=== PATIENT | male | born 1995 | race Caucasian/White ===

== ENCOUNTER 2021-08-20 04:30 | Emergency (ER) | payer OTHER ==
[~2021-08-20] VITALS: Ht 165.1 cm; Wt 80.9 kg
[2021-08-20] MEDS ORDERED: ONDANSETRON PF 4 MG/2 ML VIAL. IVP ONE (07:15)
[2021-08-20] MEDS ORDERED: IV NORMAL SALINE 1000ML BAG 1,000 ML IV ONE (07:15)
[2021-08-20] MEDS ORDERED: KETOROLAC 30 MG/ML VIAL. IVP ONE (07:15)
[2021-08-20 07:21] LABS: BASO # 0.1 x10^3/uL (0.0-0.2); BASO % 1 % (0-3); EOS # 0.2 x10^3/uL (0.0-0.7); EOS % 2 % (0-3); HEMATOCRIT 45.4 % (39.0-53.0); HEMOGLOBIN 15.5 g/dL (13.0-17.5); LYMPH # 3.1 x10^3/uL (1.0-4.8); LYMPH % 28 % (24-48); MEAN CORPUSCULAR HEMOGLOBIN 32 pg (25-35); MEAN CORPUSCULAR HGB CONC 34 g/dL (31-37); MEAN CORPUSCULAR VOLUME 93 fL (79-100); MONO # 0.5 x10^3/uL (0.0-1.1); MONO % 4 % (0-9); NEUT # 7.4 x10^3/uL (1.8-7.7); NEUT % 66 % (31-73); PLATELET COUNT 254 x10^3/uL (140-400); RED BLOOD COUNT 4.89 x10^6/uL (4.30-5.70); RED CELL DISTRIBUTION WIDTH 12.8 % (11.5-14.5); WHITE BLOOD COUNT 11.3 x10^3/uL (4.0-11.0)
--- NOTE | 2021-08-20 07:21 | PHYS DOC ---
Adult General Chief Complaint Chief Complaint: ABDOMINAL PAIN HPI HPI The patient is a 26-year-old male with a history of HIV on antiretroviral therapy with what he reports is an undetectable viral load. He presents for e valuation of low midline abdominal pain with onset at about 1 AM overnight, awakening the patient from sleep. Associated nonbloody vomiting x2. Patient reports discomfort was not reproducible to palpation. It was initially severe and nonradiating but is now mild and nonradiating, no more than 1 or 2 out of 10 in severity. Patient reports a prior episode of identical discomfort about a week ago which lasted for a few hours without any vomiting and then resolved. Prior to that, no episodes of similar pain in the past. Patient is alert and pleasantly and appropriately interactive and in no acute distress. Vital signs are appropriate here. Review of Systems Review of Systems A 12 point review of systems was completed and was negative except for noted in HPI above. Current Medications Current Medications Current Medications Medications (Trade) Dose Ordered Sig/Christian Start Time Stop Time Status Last Admin Dose Admin Info (CONTRAST GIVEN -- Rx MONITORING) 1 each PRN DAILY PRN 08/20/21 08:00 08/22/21 07:59 Iohexol (Omnipaque 300 Mg/ml) 75 ml 1X ONCE 08/20/21 08:00 08/20/21 08:01 DC 08/20/21 08:27 75 ML Ketorolac Tromethamine (Toradol 30mg Vial) 30 mg 1X ONCE 08/20/21 07:15 08/20/21 07:16 DC 08/20/21 07:33 30 MG Ondansetron HCl (Zofran) 4 mg 1X ONCE 08/20/21 07:15 08/20/21 07:16 DC 08/20/21 07:33 4 MG Sodium Chloride 1,000 ml @ 1,000 mls/hr 1X ONCE 08/20/21 07:15 08/20/21 08:14 DC 08/20/21 07:32 1,000 MLS/HR Allergies Allergies Allergies Coded Allergies Type Severity Reaction Last Updated Verified amoxicillin Allergy Intermediate 08/20/21 Yes azithromycin Allergy Intermediate 08/20/21 Yes cefdinir Allergy Intermediate 08/20/21 Yes clavulanic acid Allergy Intermediate 08/20/21 Yes Uncoded Allergies Type Severity Reaction Last Updated Verified AMOXICLLIN Allergy Unknown 08/20/21 Physical Exam Physical Exam 26-year-old male appearing nontoxic and in no acute distress. Head is normocephalic and atraumatic. Neck is supple and nontender. Oropharynx is moist. Lungs are clear to auscultation at all stations. There is a normal S1 and S2 without rubs or gallops and capillary refill is appropriate, less than 2 seconds globally. Abdomen is soft, nontender and nondistended. Skin is warm and dry without cyanosis, clubbing or edema. Psychiatrically, the patient demonstrates appropriate mood and affect and is alert. Current Patient Data Vital Signs Vital Signs Date Time Temp Pulse Resp B/P (MAP) Pulse Ox O2 Delivery O2 Flow Rate FiO2 08/20/21 07:02 98.4 68 16 148/100 (116) 100 Room Air 98.4 Lab Values Laboratory Tests Test 08/20/21 07:05 08/20/21 07:15 White Blood Count 11.3 x10^3/uL (4.0-11.0) H Red Blood Count 4.89 x10^6/uL (4.30-5.70) Hemoglobin 15.5 g/dL (13.0-17.5) Hematocrit 45.4 % (39.0-53.0) Mean Corpuscular Volume 93 fL (79-100) Mean Corpuscular Hemoglobin 32 pg (25-35) Mean Corpuscular Hemoglobin Concent 34 g/dL (31-37) Red Cell Distribution Width 12.8 % (11.5-14.5) Platelet Count 254 x10^3/uL (140-400) Neutrophils (%) (Auto) 66 % (31-73) Lymphocytes (%) (Auto) 28 % (24-48) Monocytes (%) (Auto) 4 % (0-9) Eosinophils (%) (Auto) 2 % (0-3) Basophils (%) (Auto) 1 % (0-3) Neutrophils # (Auto) 7.4 x10^3/uL (1.8-7.7) Lymphocytes # (Auto) 3.1 x10^3/uL (1.0-4.8) Monocytes # (Auto) 0.5 x10^3/uL (0.0-1.1) Eosinophils # (Auto) 0.2 x10^3/uL (0.0-0.7) Basophils # (Auto) 0.1 x10^3/uL (0.0-0.2) Sodium Level 140 mmol/L (136-145) Potassium Level 4.1 mmol/L (3.5-5.1) Chloride Level 103 mmol/L (98-107) Carbon Dioxide Level 28 mmol/L (21-32) Anion Gap 9 (6-14) Blood Urea Nitrogen 16 mg/dL (8-26) Creatinine 0.9 mg/dL (0.7-1.3) Estimated GFR (Cockcroft-Gault) 101.2 BUN/Creatinine Ratio 18 (6-20) Glucose Level 89 mg/dL (70-99) Calcium Level 8.6 mg/dL (8.5-10.1) Total Bilirubin 0.5 mg/dL (0.2-1.0) Aspartate Amino Transferase (AST) 18 U/L (15-37) Alanine Aminotransferase (ALT) 33 U/L (16-63) Alkaline Phosphatase 60 U/L (46-116) Total Protein 7.4 g/dL (6.4-8.2) Albumin 3.9 g/dL (3.4-5.0) Albumin/Globulin Ratio 1.1 (1.0-1.7) Lipase 59 U/L (73-393) L Urine Collection Type Unknown Urine Color Yellow Urine Clarity Clear Urine pH 6.0 (<5.0-8.0) Urine Specific [place] 1.010 (1.000-1.030) Urine Protein Negative mg/dL (NEG-TRACE) Urine Glucose (UA) Negative mg/dL (NEG) Urine Ketones (Stick) Negative mg/dL (NEG) Urine Blood Negative (NEG) Urine Nitrite Negative (NEG) Urine Bilirubin Negative (NEG) Urine Urobilinogen Dipstick 0.2 mg/dL (0.2 mg/dL) Urine Leukocyte Esterase Negative (NEG) Urine RBC 0 /HPF (0-2) Urine WBC Occ /HPF (0-4) Urine Squamous Epithelial Cells Occ /LPF Urine Bacteria 0 /HPF (0-FEW) Urine Mucus Slight /LPF Laboratory Tests 08/20/21 07:05 Laboratory Tests 08/20/21 07:05 EKG EKG [] Radiology/Procedures Radiology/Procedures [] Course & Med Decision Making Course & Med Decision Making 26-year-old gentleman, HIV positive but with undetectable viral load due to co mpliance with antiretroviral medications. Here with nonreproducible low abdominal discomfort and vomiting beginning overnight. Prior identical episode last week. Will place IV and give IV fluids and medication for nausea and discomfort as noted and will check labs and urine and will then reevaluate. Depending upon urinalysis results, will opt for either a contrasted or a stone protocol CT scan of the abdomen and pelvis for disposition. Patient understands and agrees with this plan of care. 0910: Patient is resting comfortably in no acute distress on serial reassessments. Endorses complete resolution of his presenting abdominal discomfort, nausea and vomiting. Labs and imaging wholly nonacute and without evidence of a clear etiology for the patient's presenting symptoms. Given reas suring work-up and resolution of symptoms and is otherwise entirely well- appearing patient, will discharge home with medication for symptomatic management and instructions to follow-up very closely in the next 1 to 2 days with primary care. Patient understands that if he feels worse instead of bett er, has recurrent symptoms or any other new symptoms of concern that he will need to return to the emergency department immediately for reevaluation. All questions were answered Dragon Disclaimer Dragon Disclaimer This electronic medical record was generated, in whole or in part, using a voice recognition dictation system. Departure Departure Impression: Primary Impression: Lower abdominal pain Additional Impression: Acute vomiting Disposition: 01 HOME / SELF CARE / HOMELESS Condition: IMPROVED Patient Instructions: Abdominal Pain (Nonspecific) Additional Instructions: Follow-up very closely with your primary care doctor in the office in the next 1 to 2 days for a reevaluation of your symptoms and to discussion of next best steps in care. Get plenty of rest and drink plenty of fluids. Take a 500 mg extra strength Tylenol pill every 6 hours as needed for discomfort. You may also try a 10 mg Bentyl pill every 6 hours as needed for pain. For nausea, take a Zofran tablet underneath your tongue (let it dissolve) every 8 hours as needed. Return to the emergency department right away for recurrent or worsening symptoms of any kind or with any other new symptoms of concern. Scripts Ondansetron Hcl (ZOFRAN) 4 Mg Tablet 1 TAB PO PRN Q6-8HRS for nausea, #12 TAB Prov: VITA MAXWELL MD 08/20/21 Dicyclomine Hcl (DICYCLOMINE HCL) 10 Mg Capsule 10 MG PO QID for abd pain/spasm, #16 CAP Prov: VITA MAXWELL MD 08/20/21 Acetaminophen (ACETAMINOPHEN) 500 Mg Tablet 1 TAB PO PRN Q6HRS PRN for pain or fever for 15 Days, #50 TAB 0 Refills Prov: VITA MAXWELL MD 08/20/21 Problem Qualifiers VITA MAXWELL MD Aug 20, 2021 07:21
[2021-08-20 07:25] LABS: BILIRUBIN,URINE NEGATIVE (NEG); CLARITY,URINE CLEAR; COLOR,URINE YELLOW; NITRITE,URINE NEGATIVE (NEG); PROTEIN,URINE NEGATIVE (NEG-TRACE); UROBILINOGEN,URINE 0.2 mg/dL (0.2 mg/dL)
[2021-08-20 07:27] LABS: CALCIUM 8.6 mg/dL (8.5-10.1); CREATININE 0.9 mg/dL (0.7-1.3); GFR 101.2; POTASSIUM 4.1 mmol/L (3.5-5.1)
[2021-08-20 07:33] LABS: ALBUMIN 3.9 g/dL (3.4-5.0); ALBUMIN/GLOBULIN RATIO 1.1 (1.0-1.7); TOTAL BILIRUBIN 0.5 mg/dL (0.2-1.0); TOTAL PROTEIN 7.4 g/dL (6.4-8.2)
[2021-08-20 07:39] LABS: BACTERIA,URINE 0 /HPF (0-FEW); RBC,URINE 0 /HPF (0-2); WBC,URINE OCC /HPF (0-4)
[2021-08-20] MEDS ORDERED: IOHEXOL 300 MG/ML 100ML VIAL. IV ONE (08:00)
[2021-08-20] MEDS ORDERED: CONTRAST GIVEN. MC PRN (08:00)
--- NOTE | 2021-08-20 08:39 | RAD ---
Exam: CT abdomen/pelvis with intravenous contrast Indication: Bilateral lower quadrant abdominal pain, vomiting Comparison: None Technique: Helical CT imaging performed of the abdomen and pelvis after the intravenous administratio n of 75 mL Omnipaque 300 contrast. Sagittal and coronal reformats were obtained. One or more of the following individualized dose reduction techniques were utilized for this examinat ion: 1. Automated exposure control 2. Adjustment of the mA and/or kV according to patient size 3. Use of iterative reconstruction technique. Findings: Lower chest: The lung bases are clear. The heart is normal in size. Liver: Normal. Gallbladder/Biliary Tree: Normal. Pancreas: Normal. Spleen: Normal. Adrenal Glands: Normal. Kidneys/Ureters/Bladder: Kidneys are normal in size. No hydronephrosis. Ureters and bladder are erika l. Reproductive Organs: Normal. Stomach, small bowel, and colon: Stomach is normal. There is no small bowel obstruction. The appendix and colon are normal. Vasculature: Abdominal aorta is normal. Lymph Nodes: No lymphadenopathy. Peritoneum and retroperitoneum: No free fluid or free air. Bones: No acute osseous abnormality. IMPRESSION: No acute abnormality in the abdomen and pelvis. Normal appendix. Electronically signed by: Yary Asencio MD (08/20/2021 8:36 AM) [id number]
[2021-08-20 09:04] VITALS: BP 121/73
[2021-08-20] MEDS ORDERED: ONDA4TAB7 PO (09:19)
[2021-08-20] MEDS ORDERED: ACET500T68 PO (09:19)
[2021-08-20] MEDS ORDERED: DICY10CA3 PO (09:19)
== END 2021-08-20 09:35 | disposition home or self-care (01) ==
LOC: ER 04:30
DX: R10.30 Lower abdominal pain, unspecified (principal); R11.10 Vomiting, unspecified; Z88.1 Allergy status to other antibiotic agents; Z88.8 Allergy status to other drugs, medicaments and biological substances
CPT/HCPCS: 36415; 74177; 80053; 81001; 83690; 85025; 96361; 96374; 96375; 99285; J1885; J2405; J7030; Q9967